=== PATIENT | female | born 1965 | race Caucasian/White ===

== ENCOUNTER 2023-12-01 10:04 | Outpatient (CLI) | payer BC, SELFPAY ==
--- NOTE | 2023-12-20 11:50 | WPDHOMESLEEP ---
Sleep Study - Home Unattended Date of Study: 12/01/23 Ordering Provider: SIM Hammond-Flash Interpreting Provider: Kayla Esposito, DO Home Sleep Study Type: Watch PAT Height: 1.73 m Weight: 111.584 kg Body Mass Index: 37.4 Neck Circumference (inches): 13.5 [place]: 13 Reason for Sleep Study Daytime hypersomnia Sleep History The patient is a 58-year-old female with cervical disc disease, GERD, headaches, restless legs syndrome, Raynaud's disease, hyperglyceridemia, MLH1-related Gee syndrome, adjustment disorder with depressed mood, short-bowel syndrome, TMJ and obesity that had a sleep study ordered by her primary care for evaluation of sleep apnea. The patient denies awakening from sleep short of breath. She denies awakening at night with heartburn, belching or cough. She rarely snores and is never loud enough that others complain. She frequently has trouble sleeping when she has a cold. She denies waking up gasping for air throughout the night. She denies having breathing problems at night observed by herself or others. She constantly sweats excessively at night. She occasionally has heart palpitations or irregular heartbeats during the night. She occasionally falls asleep during the day but never while driving. She denies cataplexy. She denies having trouble at school or work due to sleepiness. She rarely feels unable to move while waking up or falling asleep. She rarely experiences vivid dreamlike scenes upon awakening or falling asleep. She denies feeling afraid of going to sleep. She rarely has nightmares. She rarely remembers her dreams. She constantly has thoughts racing through her mind. She occasionally feels sad, depressed and anxious. She constantly has muscular tension. She occasionally notices parts of her body jerk. She denies kicking during the night. She frequently has crawling and aching feelings in her legs and frequently has leg pain during the night. She constantly grinds her teeth during sleep and frequently awakens with morning jaw pain. She is occasionally bothered by pain during the day and occasionally awakened by pain during the night. She constantly wakes up feeling stiff in the morning. She constantly wakes up with sore or achy muscles. She constantly wakes up with pain in the neck, spine and other joints. She goes to bed at midnight on both weekdays and weekends. It takes her 2 hours to fall asleep. She wakes up 4-5 times throughout the night for unknown reasons and is able to fall back asleep within 15-30 minutes. She wakes up at 8:00 a.m. on both weekdays and weekends. She typically gets 4-5 hours of sleep per night. She will stay in bed for 10-15 minutes after waking up in the morning. She currently lives with her . She denies consuming any caffeinated beverages within 2 hours of bedtime. She denies engaging in physical exercise before bedtime. She will watch television before falling asleep. She denies taking naps in the afternoon or the evening. She consumes caffeinated beverages twice per week. She consumes alcoholic beverages once or twice per month. She denies tobacco and recreational drug PMFSH Past Medical History Medical History Cervical disc disorder at C4-C5 level with radiculopathy Radicular pain of upper extremity Surgical History Surgical History H/O tubal ligation (~1998) Hx of BSO (bilateral salpingo-oophorectomy) (~2018) S/P laparoscopic hysterectomy (~2018) Social History Social History Social History: Caffeine-daily Smoking status: Never smoker Alcohol intake: never Substance use: never Lack of Transportation: No Lack of Food: Never True Current Housing: I Have Housing Concerned About Future Housing: No Difficulty Paying Gas/Electric Bills: No Diff
[2023-12-20 12:08] VITALS: BMI 37.4
== END 2023-12-02 13:39 | disposition home or self-care (01) ==
PROVIDERS: PCP Family Medicine; Visit Provider Nurse Practitioner Family
DX: G47.33 Obstructive sleep apnea (adult) (pediatric) (principal); G25.81 Restless legs syndrome; F39 Unspecified mood [affective] disorder
CPT/HCPCS: 95800